=== PATIENT | female | born 1975 | race Caucasian/White ===

== ENCOUNTER → 2019-03-19 11:04 | Outpatient (CLI) | payer OTHER, SELFPAY ==
--- NOTE | 2019-03-19 | DI.MG.S_ITS ---
BILATERAL DIGITAL SCREENING MAMMOGRAM 3D/2D WITH CAD: 03/19/2019 CLINICAL: Routine screening. Family history of breast cancer. Comparison is made to exam [facility]: [facility]. The tissue of both breasts is extremely dense, which lowers the sensitivity of mammography. Current study was also evaluated with a Computer Aided Detection (CAD) system. No significant masses, calcifications, or other findings are seen in either breast. There has been no significant interval change. IMPRESSION: NEGATIVE There is no mammographic evidence of malignancy. A 1 year screening mammogram is recommended. This exam was interpreted at Station ID: [id number]. NOTE: For mammograms, a report in lay terms will be sent to the patient. Approximately 15% of breast malignancies will not be visualized mammographically. In the management of a palpable breast mass, a negative mammogram must not discourage biopsy of a clinically suspicious lesion. Electronically Signed By: Buster pickering/reece:03/19/2019 16:52:30 letter sent: Normal Exam ACR BI-RADS Category 1: Negative [id number]
== END ==
PROVIDERS: PCP Student in an Organized Health Care Education/Training Program; Visit Provider Student in an Organized Health Care Education/Training Program
DX: Z12.31 Encounter for screening mammogram for malignant neoplasm of breast (principal); Z80.3 Family history of malignant neoplasm of breast
CPT/HCPCS: 77063; 77067

== ENCOUNTER 2019-07-17 08:24 | Emergency (ER) | payer OTHER, SELFPAY ==
[2019-07-17 08:38] VITALS: BP 117/78; PULSE 76; RESP 16; TEMP 36.8; O2SAT 100; BMI 19.4
--- NOTE | 2019-07-17 08:42 | ED.URI ---
HPI - URI/Sore Throat General Chief Complaint: Upper Respiratory Symptoms Stated Complaint: hx of asthma/an attack during night Time Seen by Provider: 07/17/19 08:41 Source: patient Mode of arrival: Ambulatory Limitations: no limitations History of Present Illness HPI Narrative: Patient is a 44-year-old female who presents with shortness of breath. She is not sure she has asthma she was given inhaler and a spacer about a year ago. She says the last few nights she has had difficulty breathing she feels like she does not get enough air in and that her chest is tight. She has a dry nonproductive cough no. Her inhaler now. She has appoint with PCP next week. She is not sure if she has asthma or not. She feels like she could use a treatment now but does not have any shortness of breath at this time. MD Complaint: cough Duration: improved Relieving factors: nothing Exacerbating factors: nothing Related Data Home Medications Medication Instructions Recorded Confirmed cetirizine [Zyrtec] #0 12/08/17 03/02/18 ibuprofen #0 12/08/17 03/02/18 naratriptan [Amerge] 2.5 mg PO PRN PRN #0 12/08/17 03/02/18 Previous Rx's Medication Instructions Recorded erenumab-aooe 70 mg/mL 140 mg SUBCUT QMONTH #2 ml 08/12/18 subcutaneous auto-injector eletriptan 40 mg tablet 40 mg PO SEE INSTRUCTIONS PRN #12 12/29/18 tab eletriptan 40 mg tablet See Rx Instructions PO .COMPLEX 07/15/19 #10 tab albuterol sulfate 2 puff INHALATION Q4-6H PRN #8.5 07/17/19 gram Allergies Allergy/AdvReac Type Severity Reaction Status Date / Time No Known Drug Allergies Allergy Verified 07/17/19 08:44 Review of Systems Review of Systems Narrative: GENERAL: Denies chills, fatigue, malaise, fever, sweats, travel HEENT: Denies sinus pain, ear pain, sore throat, difficulty swallowing, neck pain RESPIRATORY: See HPI CARDIOVASCULAR: Denies chest pain, palpitations, orthopnea, edema GASTROINTESTINAL: Denies nausea, vomiting, abdominal pain, diarrhea, constipation, melena. : Denies dysuria, frequency, incontinence, hematuria, urinary retention, flank pain. MUSCULOSKELETAL: Denies weakness, joint pain, or bony pain SKIN: No rash, no erythema, no pruritus NEUROLOGIC: Denies weakness, dizziness, headache, numbness, change in speech, confusion PSYCHIATRIC: No concerning psychosocial issues. 12 point review of systems is negative except for those stated above and HPI Patient History Medical History Chronic migraine without aura, intractable, without status migrainosus (Chronic) Social History Smoking Status: Never smoker Exam Initial Vital Signs Initial Vital Signs: Vital Signs Temperature 98.3 F 07/17/19 08:38 Pulse Rate 76 07/17/19 08:38 Respiratory Rate 16 07/17/19 08:38 Blood Pressure 117/78 07/17/19 08:38 Pulse Oximetry 100 07/17/19 08:38 GENERAL: Well-appearing, well-nourished and in no acute distress. HEENT: Head atraumatic,EOMI, pupils reactive, face symmetric, moist mucous membranes CARDIOVASCULAR: Regular rate and rhythm without murmurs, rubs or gallops. RESPIRATORY: Breath sounds equal bilaterally, no wheezes rales or rhonchi. Speaks in full sentences without difficulty ABDOMEN: Soft, nontender. Normoactive bowel sounds all 4 quadrants. No guarding or rebound. EXTREMITIES: Normal range of motion, no clubbing or edema. Neurovascularly intact NEUROLOGICAL: Alert and oriented x4. SKIN: Warm, dry, no laceration, no petechiae, no rashes or lesions. Course Orders Ordered: Discontinued Medications Albuterol (Ventolin) 2.5 mg INH NOW ONE Stop: 07/17/19 08:42 Last Admin: 07/17/19 09:54 Dose: Not Given Documented by: RUBY Vital Signs Vital signs: Vital Signs - 8 hr 07/17/19 08:38 07/17/19 08:56 Temperature 98.3 F Pulse Rate 76 68 Respiratory Rate 16 18 Blood Pressure 117/78 Blood Pressure [Left Arm] 111/81 Pulse Oximetry 100 100 MDM - URI/Sore Throat MDM Narrative Medical decision making narrative: Patient has clear lung she did not need or want nebulizer treatment in the ED. I have recommended that she have proper asthma testing with her PCP. She is given a refill on her albuterol. Discharge Plan Departure Patient Disposition: Home Clinical Impression: Mild intermittent reactive airway disease Discharge Date/Time: 07/17/19 09:00 Instructions: DI for Reactive Airway Disease-Adult Activity Restrictions/Additional Instructions: *You have been diagnosed with reactive airway disease *What to do: To officially diagnose had asthma you need specific testing which her PCP can arrange. *Continue to take medications as directed \albuterol inhaler 1-2 puffs every 4 hours only if needed for shortness of breath. If you are needing this medication more frequently or multiple times a day please see her PCP *Follow up with your primary care provider in 2-3 days *Return to ER if you should have no relief with albuterol, increasing shortness of breath, chest pain or any new, worsening or concerning symptoms Prescriptions: New albuterol sulfate 90 mcg/actuation HFA aerosol inhaler 2 puff INHALATION Q4-6H PRN (Reason: shortness of breath or wheezing) Qty: 8.5 RF: 0 No Action ibuprofen 200 MG tablet Qty: 0 RF: 0 naratriptan [Amerge] 2.5 MG tablet 2.5 mg PO PRN PRNQty: 0 RF: 0 cetirizine [Zyrtec] 10 mg Tablet,Disintegrating Qty: 0 RF: 0 erenumab-aooe [Aimovig Autoinjector (2 Pack)] 70 mg/mL auto-injector 140 mg SUBCUT QMONTH Qty: 2 RF: 11 eletriptan 40 mg tablet 40 mg PO SEE INSTRUCTIONS PRN (Reason: migraine headache) Qty: 12 RF: 6 eletriptan 40 mg tablet See Rx Instructions PO .COMPLEX Qty: 10 RF: 4 Referrals: Kaity Stallings PA-C [Primary Care Provider] -
[2019-07-17 08:56] VITALS: BP 111/81; PULSE 68; RESP 18; O2SAT 100
== END 2019-07-17 09:00 | disposition home or self-care (01) ==
LOC: ED 08:55
PROVIDERS: Emergency Provider Emergency Medicine; PCP Student in an Organized Health Care Education/Training Program
DX: J45.20 Mild intermittent asthma, uncomplicated (principal)
CPT/HCPCS: 99282; 99283

== ENCOUNTER → 2019-07-30 14:49 | Outpatient (ROUT) | payer OTHER, SELFPAY ==
[2019-07-30 15:04] LABS: Add Manual Diff / Slide Review NO; Basophils Absolute Auto 0 /uL (0-100); Basophils Percent Auto 0.5 % (0-2); Eosinophils Absolute Auto 500 /uL (0-450); Eosinophils Percent Auto 5.9 % (2-4); Hematocrit 40.5 % (36-46); Hemoglobin 13.3 g/dL (12.0-16.0); Lymphocytes Absolute Auto 2300 /uL (1100-4500); Lymphocytes Percent Auto 28.3 % (25-40); Mean Corpuscular HGB Conc 32.8 % (30-36); Mean Corpuscular Hemoglobin 27.6 PG (26-34); Mean Corpuscular Volume 84.1 fL (80-100); Monocytes Absolute Auto 500 /uL (0-900); Monocytes Percent Auto 6.4 % (3-14); Neutrophils Absolute Auto 4800 /uL (1500-7000); Neutrophils Percent Auto 58.9 % (50-75); Platelet Count 201 X10^3/uL (150-400); Red Blood Cell Count 4.82 X10^6/uL (4.0-5.2); Red Cell Distribution Width 12.9 % (11.6-14.8); White Blood Cell Count 8.1 X10^3/uL (4.5-11.0)
[2019-07-30 15:14] LABS: Alanine Aminotransferase 31 IU/L (<35); Albumin 3.9 g/dL (3.5-5.0); Albumin Globulin Ratio 1.7 (1.0-2.8); Alkaline Phosphatase 48 U/L (38-126); Aspartate Aminotransferase 31 IU/L (14-36); BUN Creatinine Ratio 14.3 (6-22); Bilirubin Total 0.7 mg/dL (0.2-1.3); Blood Urea Nitrogen 10 mg/dL (7-17); Calcium 9.3 mg/dL (8.4-10.2); Carbon Dioxide 25 mmol/L (22-32); Chloride 106 mmol/L (98-107); Cholesterol 198 mg/dL (140-199); Estimated Glomerular Filt Rate > 60.0 mL/min (>60); Globulin 2.3 g/dL (1.7-4.1); Glucose 75 mg/dL (70-100); HDL Cholesterol 71 mg/dL (40-60); HEMOLYSIS < 15 (0-50); LDL Cholesterol Calculated 108 mg/dL (<100); Potassium 4.5 mmol/L (3.4-5.1); Sodium 138 mmol/L (137-145); Total Protein 6.2 g/dL (6.3-8.2); Triglycerides 95 mg/dL (35-150)
[2019-07-30 16:53] LABS: Rubella Antibody IgG 62.7 IU/mL (>15)
== END ==
PROVIDERS: PCP Student in an Organized Health Care Education/Training Program; Visit Provider Student in an Organized Health Care Education/Training Program
DX: Z01.84 Encounter for antibody response examination (principal); E78.00 Pure hypercholesterolemia, unspecified
CPT/HCPCS: 80053; 80061; 85025; 86735; 86762; 86765

== ENCOUNTER → 2020-05-10 14:13 | Outpatient (CLI) | payer OTHER, SELFPAY ==
--- NOTE | 2020-05-10 14:32 | DI.MG.S_ITS ---
Patient Name: EVY DAVALOS date: 1975 Sex: F Attending Physician: Chandrakant Indications: Date: 05/10/2020 14:29 At the request of: LALO ROPER Procedure: MM screening mammo BI BILATERAL DIGITAL SCREENING MAMMOGRAM 3D/2D WITH CAD: 05/10/2020 CLINICAL: Routine screening. Family history of breast cancer. Comparison is made to exams dated: 03/19/2019 mammogram, 12/08/2017 mammogram, and 11/25/2017 mammogram - [facility]. The tissue of both breasts is extremely dense, which lowers the sensitivity of mammography. Current study was also evaluated with a Computer Aided Detection (CAD) system. There is a focal asymmetry in the left breast at 12 o'clock anterior depth. No other significant masses, calcifications, or other findings are seen in either breast. IMPRESSION: INCOMPLETE: NEEDS ADDITIONAL IMAGING EVALUATION The focal asymmetry in the left breast is indeterminate. Additional views with possible ultrasound are recommended. This exam was interpreted at Station ID: [id number]. NOTE: For mammograms, a report in lay terms will be sent to the patient. Approximately 15% of breast malignancies will not be visualized mammographically. In the management of a palpable breast mass, a negative mammogram must not discourage biopsy of a clinically suspicious lesion. Electronically Signed By: Radha mcgregor/:05/10/2020 14:43:20 letter sent: Additional Imaging Needed ACR BI-RADS Category 0: Incomplete 3340F
== END ==
PROVIDERS: PCP Student in an Organized Health Care Education/Training Program; Referring Provider Student in an Organized Health Care Education/Training Program; Visit Provider Student in an Organized Health Care Education/Training Program
DX: Z12.31 Encounter for screening mammogram for malignant neoplasm of breast (principal); Z80.3 Family history of malignant neoplasm of breast
CPT/HCPCS: 77063; 77067

== ENCOUNTER → 2020-06-07 14:58 | Outpatient (CLI) | payer OTHER, SELFPAY ==
--- NOTE | 2020-06-07 | DI.MG.S_ITS ---
UNILATERAL LEFT DIGITAL DIAGNOSTIC MAMMOGRAM 3D/2D WITH ADDITIONAL VIEWS: 06/07/2020 CLINICAL: Additional evaluation requested from prior study. Comparison is made to exams dated: 05/10/2020 mammogram, 03/19/2019 mammogram, and 11/25/2017 mammogram - [facility]. The tissue of left breast is extremely dense, which lowers the sensitivity of mammography. There is a 0.5 cm irregular focal asymmetry with an obscured margin in the left breast at 2 o'clock middle depth 2 cm from the nipple. This is more prominent. No other significant masses or calcifications are seen in the breast. IMPRESSION: INCOMPLETE: NEEDS ADDITIONAL IMAGING EVALUATION The 0.5 cm irregular focal asymmetry in the left breast is indeterminate. An ultrasound is recommended and is scheduled to follow immediately. This exam was interpreted at Station ID: [id number]. NOTE: For mammograms, a report in lay terms will be sent to the patient. Approximately 15% of breast malignancies will not be visualized mammographically. In the management of a palpable breast mass, a negative mammogram must not discourage biopsy of a clinically suspicious lesion. Electronically Signed By: Shar Paniagua M.D. jr/:06/07/2020 15:17:01 ACR BI-RADS Category 0: Incomplete [id number]
--- NOTE | 2020-06-07 | DI.US.S_ITS ---
LIMITED ULTRASOUND OF LEFT BREAST: 06/07/2020 CLINICAL: Patient returns today to evaluate asymmetry in left breast. Comparison is made to exams dated: 06/07/2020 mammogram, 05/10/2020 mammogram, and 03/19/2019 mammogram - [facility]. Color flow and real-time ultrasound of the left breast 1-3 o'clock region were performed. Plaza scale images of the real-time examination were reviewed. There is a 0.4 cm irregular mass with an indistinct and angular margin in the left breast at 2 o'clock posterior depth 2.5 cm from the nipple. This irregular mass is hypoechoic with internal echoes. Color flow imaging demonstrates that there is no vascularity present. IMPRESSION: SUSPICIOUS OF MALIGNANCY The 0.4 cm irregular mass in the left breast is suspicious of malignancy. An ultrasound guided biopsy is recommended. This exam was interpreted at Station ID: [id number]. Electronically Signed By: Shar Paniagua M.D., jr/reece:06/07/2020 15:57:36 letter sent: Biopsy Required Ultrasound BI-RADS: 4 Suspicious for malignancy
== END ==
PROVIDERS: PCP Student in an Organized Health Care Education/Training Program; Referring Provider Student in an Organized Health Care Education/Training Program; Visit Provider Student in an Organized Health Care Education/Training Program
DX: R92.8 Other abnormal and inconclusive findings on diagnostic imaging of breast (principal); N63.21 Unspecified lump in the left breast, upper outer quadrant
CPT/HCPCS: 76642; 77065; G0279

== ENCOUNTER → 2020-06-20 12:46 | Outpatient (CLI) | payer OTHER, SELFPAY ==
--- NOTE | 2020-06-20 | DI.US.S_ITS ---
ULTRASOUND GUIDED BIOPSY LEFT BREAST USING VACUUM DEVICE WITH MARKING DEVICE INSERTED AND POST DIGITAL MAMMOGRAPHIC IMAGIN06/20/2020 CLINICAL: Left breast mass. PATIENT CONSENT: Risks (minor bleeding, infection, vasovagal reaction and repeat procedure), benefits and alternatives were explained to the patient and written informed consent was obtained. Correlation is made to exams dated: 06/20/2020 mammogram, 06/07/2020 ultrasound, 06/07/2020 mammogram, 05/10/2020 mammogram, 03/19/2019 mammogram, and 12/08/2017 mammogram - [facility]. An ultrasound guided biopsy using real-time ultrasound was performed for the 0.3 cm x 0.3 cm x 0.3 cm circumscribed round mass located in the left breast at 2 o'clock posterior depth 2.5 cm from the nipple. This was described on the previous mammography and ultrasound reports. Left axilla was evaluated prior to the procedure. Small axillary nodes are seen. No cortical thickening and preserved fatty hilum. The skin was prepped in the usual manner. Local anesthetic was administered to the access site. A skin yaw was made in the breast. The abnormality was approached from the lateral aspect. A 13 gauge biopsy needle was placed adjacent to the abnormality under ultrasound guidance. Once the needle was documented to be in the correct location, five cores were obtained using the Mammotome biopsy system. The patient received additional local anesthetic during the procedure. A Vision clip was inserted into the biopsy cavity. A skin adhesive and a sterile dressing were applied to the access site. Post procedure digital mammographic imaging demonstrates the location device at the targeted area. The specimens were sent to the laboratory for pathological analysis. IMPRESSION: ULTRASOUND GUIDED BIOPSY BENIGN No suspicious left axillary nodes. Ultrasound guided biopsy of the 0.3 cm mass in the left breast at 2 o'clock posterior depth 2.5 cm from the nipple was successful with no apparent post procedure complications. Pathology demonstrates Benign tissue with portions of cyst wall and stromal fibrosis in a background of fibrocystic change including fibroadenomatoid change, focal pseudoangiomatous hyperplasia, columnar cell change/columnar cell hyperplasia, cystic duct dilatation and apocrine metaplasia. Negative for atypia, carcinoma in situ and malignancy. Pathology is concordant with imaging. No further imaging follow-up required for this finding. Note: The clip at the biopsy site does not match the initial mammographic abnormality at anterior depth. A follow-up left mammogram and possible ultrasound in 6 months is recommended for this focal asymmetry at 2:00 o'clock 2 cm from the nipple anterior depth. This exam was interpreted at Station ID: [id number]. Cristobal Patterson M.D. slc/:06/26/2020 10:21:51
--- NOTE | 2020-06-20 | DI.MG.S_ITS ---
UNILATERAL LEFT DIGITAL DIAGNOSTIC MAMMOGRAM POST-NEEDLE BIOPSY: 06/20/2020 CLINICAL: Left breast mass. Comparison is made to exams dated: 06/07/2020 mammogram, 05/10/2020 mammogram, and 03/19/2019 mammogram - [facility]. The tissue of left breast is extremely dense, which lowers the sensitivity of mammography. There is a marker clip in the left breast at 2 o'clock posterior depth at the biopsy site. However, the clip site does not matched the marked abnormality seen on screening mammogram. IMPRESSION: POST PROCEDURE MAMMOGRAM FOR MARKER PLACEMENT Successful marker clip placement in the left breast 2:00 o'clock posterior depth at the biopsy site. The biopsy site does not match the marked abnormality seen on the mammographic work-up which is at anterior depth. Exam findings were discussed with the patient at the end of the biopsy procedure. This exam was interpreted at Station ID: [id number]. Electronically Signed By: Cristobal Patterson M.D. slc/:06/20/2020 15:24:14 ACR BI-RADS Category Post-procedure mammogram for marker placement
--- NOTE | 2020-06-20 | PATH_ITS ---
[facility] Accession Number: [id number] . 01 Material submitted: . breast - LT BREAST MASS 2:00 2.5CMFN . 01 Diagnosis: Left Breast Mass, 2 o'clock, 2.5 cm from The Nipple, Needle Core Biopsy: Breast tissue with portions of cyst wall and stromal fibrosis in a background of fibrocystic change including fibroadenomatoid change, focal pseudoangiomatous hyperplasia, columnar cell change/columnar cell hyperplasia, cystic duct dilatation and apocrine metaplasia. Negative for atypia, carcinoma in situ, and malignancy. . COMMENT: Clinical and radiographic correlation is necessary. Deeper levels examined. MRV 06/23/2020 1425 Local . 01 Electronically signed: . Jodie Caballero MD, Pathologist NPI- [id number] . 01 Gross description: . Received one formalin-filled container, labeled with the patient's name and labeled LT brst core bx 2 o'clock 2.5 cm FN. The specimen is received with a plastic filter in container, sample loose in container and consists of multiple fragments of yellow-herrera soft tissue which range in size from 0.4 x 0.4 x 0.3 cm to 0.8 x 0.4 x 0.4 cm. The specimen is entirely submitted in one cassette. Collection date per container: 06/20/20. Possible collection time per requisition: 12:52. Possible fixation time: Approximately 14 hours. ([id number]) /FRR 06/21/2020 0215 Local . 01 Pathologist provided ICD-10: N63.0 . 01 CPT . 023776 Performed at: [facility] [address] [place] [address], [place], [place] [id number] MD Buster Espitia MD Phone: [phone]
== END ==
PROVIDERS: PCP Student in an Organized Health Care Education/Training Program; Referring Provider Student in an Organized Health Care Education/Training Program; Visit Provider Student in an Organized Health Care Education/Training Program
DX: N63.21 Unspecified lump in the left breast, upper outer quadrant (principal); N60.02 Solitary cyst of left breast; N60.32 Fibrosclerosis of left breast; N60.82 Other benign mammary dysplasias of left breast
CPT/HCPCS: 19083; 77065

== ENCOUNTER → 2020-12-29 13:36 | Outpatient (CLI) | payer OTHER, SELFPAY ==
--- NOTE | 2020-12-29 13:39 | DI.MG.S_ITS ---
UNILATERAL LEFT DIGITAL DIAGNOSTIC MAMMOGRAM 3D/2D SHORT-TERM FOLLOW-UP: 12/29/2020 CLINICAL: Short term follow up for the left breast. Comparison is made to exams dated: 06/20/2020 ultrasound biopsy, 06/20/2020 mammogram, 06/07/2020 ultrasound, 06/07/2020 mammogram, and 05/10/2020 mammogram - [facility]. The tissue of left breast is heterogeneously dense. This may lower the sensitivity of mammography. The possible irregular equal density asymmetry in the left breast at 12 o'clock anterior depth is not significantly changed. No other significant masses or calcifications are seen in the breast. There is a biopsy clip in the 2:00 position at a posterior depth. Mammograms are otherwise stable. IMPRESSION: INCOMPLETE: NEEDS ADDITIONAL IMAGING EVALUATION The possible irregular equal density asymmetry in the left breast is stable, but remains indeterminate. An ultrasound is recommended. This was performed immediately following this exam. This exam was interpreted at Station ID: [id number]. NOTE: For mammograms, a report in lay terms will be sent to the patient. Approximately 15% of breast malignancies will not be visualized mammographically. In the management of a palpable breast mass, a negative mammogram must not discourage biopsy of a clinically suspicious lesion. Electronically Signed By: Kellee terrell/:12/29/2020 15:02:12 ACR BI-RADS Category 0: Incomplete [id number]
--- NOTE | 2020-12-29 13:39 | DI.US.S_ITS ---
LIMITED ULTRASOUND OF LEFT BREAST: 12/29/2020 CLINICAL: 6mo follow up on biopsy site left breast. Comparison is made to exams dated: 12/29/2020 mammogram, 06/20/2020 ultrasound biopsy, 06/20/2020 mammogram, 06/07/2020 ultrasound, 06/07/2020 mammogram, and 05/10/2020 mammogram - [facility]. Color flow and real-time ultrasound of the left breast 2 o'clock and 12 o'clock regions were performed. Plaza scale images of the real-time examination were reviewed. There is a 0.3 cm x 0.4 cm x 0.4 cm oval cyst in the left breast at 12 o'clock anterior depth 2 cm from the nipple. This oval cyst is hypoechoic. This probably correlates with mammography findings. Color flow imaging demonstrates that there is no vascularity present. No finding to correspond to the patient's previously biopsied abnormality at the 2:00 position. IMPRESSION: PROBABLY BENIGN The 0.4 cm cyst in the left breast most likely is a complicated cyst and is probably benign. There is no abnormality seen in the left breast to correspond with the area of clinical concern at 2 o'clock. A follow-up left ultrasound in 6 months is recommended to demonstrate stability of the 12:00 finding. The patient will be due for bilateral mammograms at that same visit. Mammograms are otherwise stable. Findings and recommendations were conveyed to the patient at time of exam. This exam was interpreted at Station ID: [id number]. Electronically Signed By: Kellee terrell/:01/01/2021 09:03:06 letter sent: Followup Recommended Ultrasound BI-RADS: 3 Probably benign
== END ==
PROVIDERS: PCP Student in an Organized Health Care Education/Training Program; Referring Provider Student in an Organized Health Care Education/Training Program; Visit Provider Student in an Organized Health Care Education/Training Program
DX: R92.8 Other abnormal and inconclusive findings on diagnostic imaging of breast (principal); N60.02 Solitary cyst of left breast
CPT/HCPCS: 76642; 77065; G0279

== ENCOUNTER → 2021-05-17 14:25 | Outpatient (CLI) | payer OTHER, SELFPAY ==
--- NOTE | 2021-05-17 14:26 | DI.MG.S_ITS ---
BILATERAL DIGITAL DIAGNOSTIC MAMMOGRAM 3D/2D: 05/17/2021 CLINICAL: Short term follow up of the left breast, due for bilateral imaging. Comparison is made to exams dated: 12/29/2020 mammogram, 12/29/2020 ultrasound, 06/20/2020 ultrasound biopsy, and 06/20/2020 mammogram - [facility]. The tissue of both breasts is heterogeneously dense. This may lower the sensitivity of mammography. There is an oval equal density focal asymmetry with an indistinct margin in the left breast at 12 o'clock anterior depth. This is less prominent. No other significant masses, calcifications, or other findings are seen in either breast. IMPRESSION: INCOMPLETE: NEEDS ADDITIONAL IMAGING EVALUATION The oval equal density focal asymmetry in the left breast is indeterminate. An ultrasound is recommended. Ultrasound will be performed immediately following the current exam. This exam was interpreted at Station ID: [id number]. NOTE: For mammograms, a report in lay terms will be sent to the patient. Approximately 15% of breast malignancies will not be visualized mammographically. In the management of a palpable breast mass, a negative mammogram must not discourage biopsy of a clinically suspicious lesion. Electronically Signed By: Buster Red M.D. ddp/:05/17/2021 14:51:02 ACR BI-RADS Category 0: Incomplete [id number]
--- NOTE | 2021-05-17 14:26 | DI.US.S_ITS ---
LIMITED ULTRASOUND OF LEFT BREAST: 05/17/2021 CLINICAL: Patient returns today to evaluate a focal asymmetry in the left breast. Comparison is made to exams dated: 05/17/2021 mammogram, 12/29/2020 ultrasound, 12/29/2020 mammogram, 06/20/2020 ultrasound biopsy, 06/20/2020 mammogram, and 06/07/2020 ultrasound - [facility]. Color flow and real-time ultrasound of the left breast 12 o'clock region were performed on the areas of interest. There is a stable 0.5 cm x 0.3 cm x 0.3 cm oval cyst in the left breast at 12 o'clock anterior depth 2 cm from the nipple. This oval cyst is hypoechoic with internal echoes and posterior acoustic enhancement. This likely correlates with mammography findings. Color flow imaging demonstrates that there is no vascularity present. IMPRESSION: PROBABLY BENIGN The stable 0.5 cm x 0.3 cm x 0.3 cm oval cyst in the left breast is probably benign. A follow-up mammogram and an ultrasound in 12 months are recommended to demonstrate 2 year stability on mammography. This exam was interpreted at Station ID: [id number]. Electronically Signed By: Buster Red M.D. ddhunter/:05/17/2021 15:36:39 letter sent: Followup Recommended Ultrasound BI-RADS: 3 Probably benign
== END ==
PROVIDERS: PCP Student in an Organized Health Care Education/Training Program; Referring Provider Student in an Organized Health Care Education/Training Program; Visit Provider Student in an Organized Health Care Education/Training Program
DX: R92.8 Other abnormal and inconclusive findings on diagnostic imaging of breast (principal); N60.02 Solitary cyst of left breast
CPT/HCPCS: 76642; 77066; G0279

== ENCOUNTER → 2022-05-22 11:50 | Outpatient (CLI) | payer OTHER, SELFPAY ==
[2022-05-22 13:19] LABS: COVID19 -Nasal RAPID Negative (Negative)
== END ==
PROVIDERS: PCP Student in an Organized Health Care Education/Training Program; Visit Provider Surgery
DX: Z01.812 Encounter for preprocedural laboratory examination (principal); Z20.822 Contact with and (suspected) exposure to COVID-19
CPT/HCPCS: 87635; C9803

== ENCOUNTER 2022-05-23 07:28 | Day surgery (SDC) | payer OTHER, SELFPAY ==
[2022-05-23] VITALS (8 sets, daily range): BP systolic 95–115; BP diastolic 59–75; PULSE 59–94; RESP 16; TEMP 36.2–36.8; O2SAT 96–100; BMI 43.0
--- NOTE | 2022-05-23 | PATH_ITS ---
[facility] Accession Number: [id number] . 01 Material submitted: . PART A: duodenum - DUODENUM BIOPSIES PART B: gastrointestinal site - ANTRUM BIOPSIES PART C: gastrointestinal site - FUNDUS BIOPSIES PART D: colon - TRANSVERSE COLON POLYP . 01 Diagnosis: A. Duodenum, Biopsies: Duodenal mucosa with no diagnostic abnormality. Negative for active inflammation, features of sprue, dysplasia, or malignancy. . B. Stomach, Antrum, Biopsies: Antral mucosa with mild chronic gastritis. Negative for Helicobacter by immunohistochemistry. Negative for intestinal metaplasia. Negative for dysplasia and malignancy. . C. Stomach, Fundus, Biopsies: Body-type mucosa with mild chronic gastritis. Negative for Helicobacter by immunohistochemistry. Negative for intestinal metaplasia. Negative for dysplasia and malignancy. . D. Transverse Colon, Polyp, Biopsy: Favor inflammatory polyp. Additional levels were examined. Negative for dysplasia and malignancy. [facility] 05/29/2022 1356 Local . 01 Electronically signed: . Melinda Paz MD, Pathologist NPI- [id number] . 01 Gross description: . A. The specimen is received in formalin, labeled with the patient's name and duodenum biopsies, and consists of two irregular herrera, soft tissue fragments ranging from 0.2 cm to 0.3 cm in greatest dimension. Submitted entirely in cassette A1. B. The specimen is received in formalin, labeled with the patient's name and antrum biopsies, and consists of two irregular herrera, soft tissue fragments ranging from 0.2 cm to 0.3 cm in greatest dimension. Submitted entirely in cassette B1. C. The specimen is received in formalin, labeled with the patient's name and fundus biopsies, and consists of three irregular herrera, soft tissue fragments ranging from 0.4 cm to 0.5 cm in greatest dimension. Submitted entirely in cassette C1. D. The specimen is received in formalin, labeled with the patient's name and transverse colon polyp, and consists of three irregular herrera, soft tissue fragments ranging from 0.3 cm to 0.4 cm in greatest dimension. Submitted entirely in cassette D1. ([id number]) /FRR 05/25/2022 1412 Local . 01 Microscopic: . B. An immunohistochemical stain was performed to evaluate for Helicobacter organisms and is negative. The control stain showed appropriate reactivity. . C. An immunohistochemical stain was performed to evaluate for Helicobacter organisms and is negative. The control stain showed appropriate reactivity. . D. Additional levels were examined . . * This test was developed and its performance characteristics determined by [facility]. It has not been cleared or approved by the U.S. Food and Drug Administration. The FDA has determined that such clearance or approval is not necessary. This test is used for clinical purposes. It should not be regarded as investigational or for research. . 01 Pathologist provided ICD-10: K21.9, R19.4 . 01 CPT . 100333, 827521, 623190, 613041, V98263 Performed at: 01 [facility] [address] [place] [address], [place], [place] [id number] MD Buster Espitia MD Phone: [phone]
[2022-05-23] MEDS: LACTATED RINGERS 1,000 ML 84 ML IV (07:45)
--- NOTE | 2022-05-23 08:02 | PM.HP.1 ---
History of Present Illness History of Present Illness Date Patient Seen: 05/23/22 Time Patient Seen: 08:02 Chief complaint: EGD/Colonoscopy Narrative: Sophia is here for her upper and lower endoscopy. Her upper GI symptoms have improved somewhat since we talked in April. See the office note from April for details. Patient History Medical History (Updated 04/17/22 @ 10:21 by Biju Alvarez MD) Chronic migraine without aura, intractable, without status migrainosus Family & Social History Social History: household members spouse Tobacco & Substance use: Smoking Status Never smoker alcohol intake frequency holiday/special occasion Substance Use Type does not use Meds Home Medications and Allergies Home Medications Medication Instructions Recorded Confirmed Type eletriptan 40 mg tablet 40 mg PO SEE INSTRUCTIONS PRN 12/29/18 04/17/22 Rx migraine headache #12 tabs albuterol sulfate 90 mcg/actuation 2 puff inhalation Q4-6H PRN 07/17/19 05/23/22 Rx aerosol inhaler shortness of breath or wheezing #8.5 grams erenumab-aooe 140 mg/mL 140 mg SUBCUT QMONTH #1 mL 09/27/19 04/17/22 Rx subcutaneous auto-injector (Aimovig Autoinjector) esomeprazole magnesium 20 mg 20 mg PO DAILY 04/17/22 04/17/22 History capsule,delayed release (Nexium) paroxetine HCl 20 mg tablet 20 mg PO DAILY 04/17/22 04/17/22 History sodium sul 1.479 gram-potas ch See Rx Instructions PO PER PKG DIR 05/20/22 Rx 0.188 gram-magnes sul 0.225 gram #24 tabs tablet (Sutab) Allergies Allergy/AdvReac Type Severity Reaction Status Date / Time No Known Drug Allergies Allergy Verified 05/23/22 07:50 Exam Vital Signs (past 8 hours): - 05/23/22 07:40 Temperature 97.7 F Pulse Rate 94 H Respiratory Rate 16 Blood Pressure 107/67 Pulse Oximetry 97 Oxygen Delivery Method Room Air Oxygen Delivery Method Room Air Const General: healthy appearing Assessment & Plan Assessment and plan (1) GERD (gastroesophageal reflux disease): Qualifiers: Esophagitis presence: without esophagitis Qualified Code(s): K21.9 - Gastro-esophageal reflux disease without esophagitis Status: Acute (2) Colon cancer screening: Status: Acute Plan We will plan to proceed with an upper and lower endoscopy today. Time Spent With Patient Critical Care time: I spent a total of [] minutes of critical care time on this patient's care today; this time is exclusive of procedural time.
[2022-05-23] MEDS: LIDOCAINE 4% SOLN 50 ML 20 ML TOP (08:16)
[2022-05-23] MEDS: MIDAZOLAM 5 MG/5 ML VIAL 10 MG IV (08:18)
[2022-05-23] MEDS: fentaNYL 100 MCG/2 ML INJ 200 MCG IV (08:18)
--- NOTE | 2022-05-23 09:01 | PM.OP.EC ---
Operative Date/Time/Diagnoses Date of procedure: 05/23/22 Time of procedure: 09:01 Pre-op diagnosis: Dyspepsia and colon cancer screening Post-op diagnosis: same Procedure & Clinicians Study performed: EGD and colonoscopy Same procedure as scheduled: Yes Surgeon: Biju Alvarez Procedure Notes Procedure in detail: Surgeon: Biju Alvarez MD Procedure in detail: A timeout was performed. A bite blocked was placed and monitors were attached to the patient. The patient was positioned in a left lateral decubitus position. Sedation was administered with Versed and fentanyl. Once the patient was sedated the endoscope was inserted through the bite block and passed through the esophagus and stomach and into the duodenum. The duodenum appeared normal however random biopsies were taken from the duodenum. The duodenal bulb appeared normal. The antrum appeared normal and random biopsies were taken from the antrum to rule out H pylori. The endoscope was retroflexed and some scattered bleeding mucosal erosions were noted fundus. There was no robert ulceration. Random biopsies were taken from the fundus. There was no hiatal hernia. The endoscope was straightned and withdrawn into the esophagus. No abnormalities were noted in the esophagus. Findings: Diffuse mucosal bleeding in the fundus without robert ulceration Next we repositioned the patient for a colonoscopy. A digital rectal exam was performed and was normal. The colonoscope was inserted and advanced to the cecum. The appendiceal orifice was identified and photographed. The scope was slowly withdrawn over greater than 6 minutes. There was a 5 mm polyp in the proximal transverse colon removed with cold Jumbo forceps. The scope was retroflexed in the rectum no abnormalities were noted. Findings: 5 mm polyp in the proximal transverse colon EBL: 10 mL Versed: 10 mg Fentanyl: 200 mcg Scope withdrawal time: 15 Sedation minutes: 40 Post-procedure Recommendations: Will call with biopsy results Disposition: PACU
--- NOTE | 2022-05-23 09:50 | SUR.PHASEII ---
Patient denied pain. Tolerating oral intake. Spouse notified procedure has completed. Call light within reach. Discharge instructions reviewed and provided.
== END 2022-05-23 10:20 | disposition home or self-care (01) ==
PROVIDERS: PCP Student in an Organized Health Care Education/Training Program; Referring Provider Surgery; Visit Provider Surgery
PROC: 0DJ08ZZ Inspection of Upper Intestinal Tract, Via Natural or Artificial Opening Endoscopic (ICD-10-PCS; CPT 43235; principal; 2022-05-23 08:45)
PROC: 0DJD8ZZ Inspection of Lower Intestinal Tract, Via Natural or Artificial Opening Endoscopic (ICD-10-PCS; CPT 45378; 2022-05-23 08:45)
DX: Z12.11 Encounter for screening for malignant neoplasm of colon (principal); R10.13 Epigastric pain; K29.50 Unspecified chronic gastritis without bleeding; D12.3 Benign neoplasm of transverse colon
CPT/HCPCS: 45380; 43239; 99152; J2250; J3010

== ENCOUNTER → 2022-06-14 13:47 | Outpatient (CLI) | payer OTHER, SELFPAY ==
--- NOTE | 2022-06-14 13:48 | DI.MG.S_ITS ---
BILATERAL DIGITAL DIAGNOSTIC MAMMOGRAM 3D/2D: 06/14/2022 CLINICAL: Short term follow up of the left breast, due for bilateral imaging. Comparison is made to exams dated: 05/17/2021 mammogram, 05/17/2021 ultrasound, 12/29/2020 ultrasound, 12/29/2020 mammogram, 06/20/2020 ultrasound biopsy, and 06/20/2020 mammogram - [facility]. Both breasts are heterogeneously dense, which may obscure small masses (category c / 51-75% glandular tissue). There is a biopsy clip in the left breast. There is a stable oval equal density focal asymmetry with an indistinct margin in the left breast at 12 o'clock anterior depth. No other significant masses, calcifications, or other findings are seen in either breast. IMPRESSION: INCOMPLETE: NEEDS ADDITIONAL IMAGING EVALUATION The stable oval equal density focal asymmetry in the left breast is indeterminate. An ultrasound is recommended. Based on Tyrer-Cuzick model (a risk assessment model), the patient's lifetime risk is 25.2% and her 10 year risk is 5.2%. If a patient has an elevated risk, a more comprehensive evaluation should be considered and/or a referral to a genetic counselor. The [place] [employer], [place] [employer], and NCCN Guidelines advise the consideration of Breast MRI as an adjunct to screening mammography in patients whose Lifetime risk to develop breast cancer is 20% or higher. This exam was interpreted at Station ID: [id number]. NOTE: For mammograms, a report in lay terms will be sent to the patient. Approximately 15% of breast malignancies will not be visualized mammographically. In the management of a palpable breast mass, a negative mammogram must not discourage biopsy of a clinically suspicious lesion. Electronically Signed By: Herminio gutiérrez/ree[place]:06/14/2022 16:19:21 ACR BI-RADS Category 0: Incomplete 3340F
--- NOTE | 2022-06-14 13:49 | DI.US.S_ITS ---
LIMITED ULTRASOUND OF LEFT BREAST AND AXILLA: 06/14/2022 CLINICAL: Patient returns for a 6 month follow up of the left breast. Comparison is made to exams dated: 06/14/2022 mammogram, 05/17/2021 ultrasound, 05/17/2021 mammogram, 12/29/2020 ultrasound, 12/29/2020 mammogram, and 06/07/2020 mammogram - [facility]. Color flow ultrasound of the left breast 12 o'clock, and axilla regions was performed. Plaza scale images of the real-time examination were reviewed. There is a stable benign 0.4 cm x 0.3 cm x 0.2 cm oval cyst in the left breast at 12 o'clock anterior depth 2 cm from the nipple. This oval cyst is hypoechoic with internal echoes and posterior acoustic enhancement. This correlates with mammography findings. Color flow imaging demonstrates that there is no vascularity present. This lesion has not significantly changed mammographically when compared to multiple prior exams dating back to 06/07/2020, and is therefore considered benign. No significant abnormalities were seen sonographically in the left axilla. IMPRESSION: BENIGN There is no sonographic evidence of malignancy. The stable 0.4 cm x 0.3 cm x 0.2 cm oval cyst in the left breast is benign. Return to annual mammogram screening schedule is recommended. This exam was interpreted at Station ID: [id number]. Electronically Signed By: Herminio gutiérrez/reece:06/14/2022 16:22:16 letter sent: Normal Exam Ultrasound BI-RADS: 2 Benign
== END ==
PROVIDERS: PCP Student in an Organized Health Care Education/Training Program; Referring Provider Student in an Organized Health Care Education/Training Program; Visit Provider Student in an Organized Health Care Education/Training Program
DX: R92.8 Other abnormal and inconclusive findings on diagnostic imaging of breast (principal); N60.02 Solitary cyst of left breast
CPT/HCPCS: 76642; 77066; G0279

== ENCOUNTER → 2022-10-02 13:11 | Outpatient (CLI) | payer OTHER, SELFPAY ==
--- NOTE | 2022-10-02 13:12 | DI.RAD.S_ITS ---
PROCEDURE: XR HAND RT MIN 3V INDICATIONS: HAND PAIN AND JOINT SWELLING TECHNIQUE: 3 views of the hand(s) acquired. COMPARISON: None. FINDINGS: Bones: No fractures or dislocations. Carpal bones are normally aligned. No suspicious bony lesions. Soft tissues: No suspicious soft tissue calcifications. IMPRESSION: No evidence acute bony abnormality of the right hand Dictated by: David Melton M.D. on 10/02/2022 at 17:21 Approved by: David Melton M.D. on 10/02/2022 at 17:31
--- NOTE | 2022-10-02 13:12 | DI.RAD.S_ITS ---
PROCEDURE: XR HAND LT MIN 3V INDICATIONS: HAND PAIN AND JOINT SWELLING TECHNIQUE: 3 views of the hand(s) acquired. COMPARISON: [facility], CR, XR HAND RT MIN 3V, 10/02/2022, 14:23. FINDINGS: Bones: No fractures or dislocations. Carpal bones are normally aligned. No suspicious bony lesions. Soft tissues: No suspicious soft tissue calcifications. IMPRESSION: No evidence acute bony abnormality of the left hand Dictated by: David Melton M.D. on 10/02/2022 at 17:31 Approved by: David Melton M.D. on 10/02/2022 at 17:31
== END ==
PROVIDERS: PCP Student in an Organized Health Care Education/Training Program; Referring Provider Student in an Organized Health Care Education/Training Program; Visit Provider Student in an Organized Health Care Education/Training Program
DX: M13.0 Polyarthritis, unspecified (principal); M79.642 Pain in left hand; M79.641 Pain in right hand; M25.442 Effusion, left hand; M25.441 Effusion, right hand
CPT/HCPCS: 73130

== ENCOUNTER → 2023-07-04 14:59 | Outpatient (CLI) | payer OTHER, SELFPAY ==
--- NOTE | 2023-07-04 | DI.MG.S_ITS ---
BILATERAL DIGITAL SCREENING MAMMOGRAM 3D/2D WITH CAD: 07/04/2023 CLINICAL: Routine screening. Family history of breast cancer. Comparison is made to exams dated: 06/14/2022 mammogram, 05/17/2021 mammogram, and 05/10/2020 mammogram - [facility]. Both breasts are heterogeneously dense, which may obscure small masses (category c / 51-75% glandular tissue). Current study was also evaluated with a Computer Aided Detection (CAD) system. There is a biopsy clip in the left breast. No significant masses, calcifications, or other findings are seen in either breast. IMPRESSION: BENIGN There is no mammographic evidence of malignancy. A 1 year screening mammogram is recommended. Based on Tyrer-Cuzick model (a risk assessment model), the patient's lifetime risk is 25.3% and her 10 year risk is 5.5%. If a patient has an elevated risk, a more comprehensive evaluation should be considered and/or a referral to a genetic counselor. The [place] [employer], [employer], and NCCN Guidelines advise the consideration of Breast MRI as an adjunct to screening mammography in patients whose Lifetime risk to develop breast cancer is 20% or higher. This exam was interpreted at Station ID: [id number]. NOTE: For mammograms, a report in lay terms will be sent to the patient. Approximately 15% of breast malignancies will not be visualized mammographically. In the management of a palpable breast mass, a negative mammogram must not discourage biopsy of a clinically suspicious lesion. Electronically Signed By: Gregoria Mckeon M.D., PH.D cuong/reece:07/06/2023 20:42:38 letter sent: Normal Exam ACR BI-RADS Category 2: Benign Finding(s) 3342F
== END ==
PROVIDERS: PCP Student in an Organized Health Care Education/Training Program; Referring Provider Student in an Organized Health Care Education/Training Program; Visit Provider Student in an Organized Health Care Education/Training Program
DX: Z12.31 Encounter for screening mammogram for malignant neoplasm of breast (principal); Z80.3 Family history of malignant neoplasm of breast
CPT/HCPCS: 77063; 77067

== ENCOUNTER → 2024-08-02 17:05 | Outpatient (CLI) | payer OTHER, SELFPAY ==
--- NOTE | 2024-08-02 17:06 | DI.MG.S_ITS ---
BILATERAL DIGITAL SCREENING MAMMOGRAM 3D/2D WITH CAD: 08/02/2024 CLINICAL: Routine screening. Family history of breast cancer. Comparison is made to exams dated: 07/04/2023 mammogram, 06/14/2022 mammogram, 05/17/2021 mammogram, 12/29/2020 mammogram, 06/07/2020 mammogram, and 05/10/2020 mammogram - [facility]. The breasts are heterogeneously dense, which may obscure small masses (category c / 51-75% glandular tissue). Current study was also evaluated with a Computer Aided Detection (CAD) system. There is a biopsy clip in the left breast. No significant masses, calcifications, or other findings are seen in either breast. There has been no significant interval change. IMPRESSION: BENIGN There is no mammographic evidence of malignancy. A 1 year screening mammogram is recommended. Based on Tyrer-Cuzick model (a risk assessment model), the patient's lifetime risk is 22.3% and her 10 year risk is 5.0%. If a patient has an elevated risk, a more comprehensive evaluation should be considered and/or a referral to a genetic counselor. The [place] [employer], [employer], and NCCN Guidelines advise the consideration of Breast MRI as an adjunct to screening mammography in patients whose Lifetime risk to develop breast cancer is 20% or higher. This exam was interpreted at Station ID: [id number]. NOTE: For mammograms, a report in lay terms will be sent to the patient. Approximately 15% of breast malignancies will not be visualized mammographically. In the management of a palpable breast mass, a negative mammogram must not discourage biopsy of a clinically suspicious lesion. Electronically Signed By: Gregoria Mckeon M.D., Ph.D. cuong/reece:08/04/2024 17:02:43 letter sent: Normal Exam ACR BI-RADS Category 2: Benign
== END ==
LOC: MAMMO 17:05
PROVIDERS: PCP Student in an Organized Health Care Education/Training Program; Referring Provider Student in an Organized Health Care Education/Training Program; Visit Provider Student in an Organized Health Care Education/Training Program
DX: Z12.31 Encounter for screening mammogram for malignant neoplasm of breast (principal); Z80.3 Family history of malignant neoplasm of breast; R92.333 Mammographic heterogeneous density, bilateral breasts
CPT/HCPCS: 77063; 77067

== ENCOUNTER → 2025-08-24 11:48 | Outpatient (CLI) | payer OTHER, SELFPAY ==
--- NOTE | 2025-08-24 11:50 | DI.MG.S_ITS ---
MM screening mammo BI: 08/24/2025. BI-RADS: 2 CLINICAL: 50-year old female for bilateral screening mammogram. Tyrer-Cuzick lifetime risk of 17.5%. No personal or first-degree family history of breast cancer. Current reported family history of breast cancer: paternal grandmother and maternal aunt. The patient had a prior left breast biopsy. PRIOR EXAMS 08/02/2024, 07/04/2023, 06/14/2022, 05/17/2021, MAMMOGRAPHY TECHNIQUE: 2D and 3D (tomosynthesis) digital mammographic views obtained, with additional images as needed for full coverage. Current study was also evaluated with a Computer Aided Detection (CAD) system. DENSITY C. The breasts are heterogeneously dense, which may obscure small masses. MAMMOGRAPHY FINDINGS Right: No suspicious mass, asymmetry, microcalcification, or other abnormality seen. Left: Biopsy marker present on the left. There are no suspicious masses, calcifications, or other findings in the breast. IMPRESSION: Right * No evidence of malignancy. Left * No evidence of malignancy with benign findings. RECOMMENDATIONS Bilateral * Annual screening mammography. OVERALL ASSESSMENT CATEGORY BI-RADS-2: Benign. The [place] [employer] recommends annual screening mammography beginning at age 40 for women with average risk of breast cancer. ELECTRONICALLY SIGNED: Louise Leslie M.D. on 08/24/2025 at 06:02:07 PM PT Interpreting Station ID: [id number]
== END ==
LOC: MAMMO 11:49
PROVIDERS: PCP Student in an Organized Health Care Education/Training Program; Referring Provider Student in an Organized Health Care Education/Training Program; Visit Provider Student in an Organized Health Care Education/Training Program
DX: Z12.31 Encounter for screening mammogram for malignant neoplasm of breast (principal); R92.333 Mammographic heterogeneous density, bilateral breasts; Z80.3 Family history of malignant neoplasm of breast
CPT/HCPCS: 77063; 77067